=== PATIENT | male | born 1960 | race Caucasian/White ===

== ENCOUNTER 2023-03-03 15:33 | Emergency (ER) | payer OTHER, SELFPAY ==
[2023-03-03 15:42] VITALS: BP 155/82; PULSE 91; RESP 16; TEMP 36.7; O2SAT 96; BMI 33.0
--- NOTE | 2023-03-03 16:51 | ED.GENADULT ---
HPI - General Adult General Date Seen: 03/03/23 Chief complaint: Laceration/Wound Stated complaint: cut on finger Time Seen by Provider: 03/03/23 15:34 History of Present Illness HPI narrative: He this is a pleasant, generally healthy 63-year-old male who presents to the ER today for an accidental injury and amputation of the finger tip of his right hand middle finger (3rd digit). He was working in his wood shop this afternoon when he accidentally got the tip of his finger cut in the spinning cut her head on his joint your. He suffered a amputation of his finger tip. He was wearing gloves at the time of the injury. The tip of his glove was torn off of the joint her as well as the distal skin of his fingertip. HEENT is family searched for the amputated tissue but could not find. He was bleeding briskly from the injury at home but bleeding was controlled by elevation of the injured finger and direct pressure. At this time bleeding is controlled. He has no other injury. Normal flexion and extension of the MCP, PIP, DI P. No foreign body. He is not sure of his last tetanus shots but think it was probably many years ago. In review of the data base his last tetanus shot was in 2009, so he needs an update. He is not otherwise diabetic or immunosuppressed. Related Data Allergies Allergy/AdvReac Type Severity Reaction Status Date / Time No Known Drug Allergies Allergy Verified 03/03/23 15:45 Exam Narrative: Exam Narrative: Constitutional: Appears well-developed and well-nourished. Alert. Conversant. Non toxic. HENT: Head: Atraumatic. Nose: Nose normal. Mouth/Throat: Oral mucosa is clear and moist. no trismus. Pharynx normal. Tonsils symmetric. No tonsillar enlargement, erythema, or exudate. Eyes: Conjunctivae normal. EOM normal. Pupils equal, round, and reactive to light. No scleral icterus. Neck: Normal range of motion. Neck supple. No tracheal deviation present. Cardiovascular: Normal rate, regular rhythm. No active bleeding. Normal cap refill in the injured finger nail bed. Symmetric radial artery pulses Pulmonary/Chest: Effort normal. No stridor. No respiratory distress. Musculoskeletal: RUE: Normal range of motion, in his shoulder, elbow, wrist, and fingers. In particular normal flexion and extension of the D IP, PIP, MCP of his 3rd digit. There is a roughly 8 x 10 cm amputation of the distal skin and soft tissue of the distal finger pad. Then on the dorsum of the finger this does involve the very tip of the finger nail plate but not the nail bed. Fortunately there is soft tissue covering the distal tip of the distal phalanx. There is no exposed bone or open fracture. No active bleeding. Intact distal digital nerve sensory function. LUE: Normal range of motion. No tenderness. No deformity RLE: Normal range of motion. No edema. No tenderness. No deformity LLE: Normal range of motion. No edema. No tenderness. No deformity Neurological: Alert and oriented to person, place, and time. Normal strength. CN II-VII intact. No sensory deficit. GCS eye subscore is 4. GCS verbal subscore is 5. GCS motor subscore is 6. Normal coordination Skin: Skin is warm and dry. No rash noted. No pallor. Normal capillary refill. Psychiatric: Normal mood. Normal affect. Const: Vital Signs, click to edit/add: Vital Signs - 24 hr 03/03/23 15:42 Temperature 98.1 F Pulse Rate [Left P ulse Oximeter] 91 Respiratory Rate 16 Blood Pressure [Ri ght Upper Arm] 155/82 H Pulse Oximetry 96 Oxygen Delivery Me thod Room Air Course Vital Signs Vital signs: Initial Vital Signs Temperature 98.1 F 03/03/23 15:42 Temperature Source Temporal Artery Scan 03/03/23 15:42 Pulse Rate 91 03/03/23 15:42 Pulse Rhythm Regular 03/03/23 15:42 Pulse Strength 3+ Normal 03/03/23 15:42 Respiratory Rate 16 03/03/23 15:42 Blood Pressure 155/82 H 03/03/23 15:42 Blood Pressure Mean 106 H 03/03/23 15:42 Blood Pressure Position Sitting 03/03/23 15:42 Pulse Oximetry 96 03/03/23 15:42 Oxygen Delivery Method Room Air 03/03/23 15:42 Vital Signs Temperature 98.1 F 03/03/23 15:42 Pulse Rate 91 03/03/23 15:42 Respiratory Rate 16 03/03/23 15:42 Blood Pressure 155/82 H 03/03/23 15:42 Pulse Oximetry 96 03/03/23 15:42 Oxygen Delivery Method Room Air 03/03/23 15:42 Temperature 98.1 F 03/03/23 15:42 Pulse Rate 91 03/03/23 15:42 Respiratory Rate 16 03/03/23 15:42 Blood Pressure 155/82 H 03/03/23 15:42 Pulse Oximetry 96 03/03/23 15:42 Oxygen Delivery Method Room Air 03/03/23 15:42 Medications Administered Medications: Discontinued Medications Generic Name Dose Route Start Last Admin Trade Name Tonyq PRN Reason Stop Dose Admin Tetanus/Diphtheria Toxoids 0.5 ml 03/03/23 16:05 03/03/23 16:15 Tetanus-Diphtheria Tox Vaccine IM 03/03/23 16:06 0.5 ml .ONCE ONE Administration Medical Decision Making MDM Narrative Medical decision making narrative: Findings and exam are consistent with an uncomplicated finger tip amputation which was repaired as noted above. Unfortunately he does not have the amputated tissue with him to try to tack it back on. There is no evidence at this time to suggest any associated fracture or foreign body. There is no evidence to suggest tendon or arterial injury and patient is neurologically in tact. This amputation wound creates a roughly 8 x 10 mm defect where the skin and superficial soft tissue are absent. This will have to heal by secondary intention. We cleaned the wound here in the ER. We applied antibiotic ointment and not hear dressing and tube gauze. Discussed anticipated time for healing being several weeks. Precautions for return to the ER were reviewed. Indications to seek urgent reevaluation and signs of infection (including but not limited to increasing pain, redness, swelling, fevers, and drainage) were reviewed. Tetanus is updated today. Of note, the patient does not want Tdap but will accept TD. TD is ordered. This is a clean and non-contaminated wound in which prophylactic antibiotics are not indicated. An understanding of the discharge instructions and need for follow up were verbally confirmed. Discharge Plan Discharge Clinical Impression: Traumatic amputation of fingertip Patient Disposition: Home, Self-Care Condition: Stable Instructions: Finger Amputation (ED) Additional Instructions: As we discussed, please change the dressing once per day. It will probably take several weeks for the your finger tip to heal. If you have any concerns, especially redness, swelling, pus draining from your wound, worsening pain, or any problems, please return to the emergency department or see your doctor immediately. Follow Up/Referrals: Naldo Abrams MD [Primary Care Provider] - Stand Alone Forms: [employer] Info Instructions
== END 2023-03-03 16:57 | disposition home or self-care (01) ==
LOC: ED 16:48
PROVIDERS: Emergency Provider Emergency Medicine; PCP Family Medicine
DX: S68.112A Complete traumatic metacarpophalangeal amputation of right middle finger, initial encounter (principal); W31.2XXA Contact with powered woodworking and forming machines, initial encounter
CPT/HCPCS: 90471; 90714; 99282; 99283